=== PATIENT | female | born 1960 | race American Indian/Alaskan Native ===

== ENCOUNTER 2016-09-26 20:04 | Emergency (ER) | payer MEDICAID ==
[2016-09-26 21:16] LABS: Hematocrit 39.8 % (30.3-42.9); Hemoglobin 12.9 gm/dl (10.1-14.3); Mean Corpuscular HGB Conc 32 % (30-34); Mean Corpuscular Hemoglobin 27 pg (28-32); Mean Corpuscular Volume 82 fl (79-97); Platelet Count 161 K/mm3 (140-440); Red Blood Count 4.84 M/mm3 (3.65-5.03); Red Cell Distribution Width 14.7 % (13.2-15.2); White Blood Count 4.7 K/mm3 (4.5-11.0)
[2016-09-26 21:54] LABS: Urine Drugs of Abuse Note Disclamer
[2016-09-26 22:22] LABS: Bilirubin,Urine NEG (Negative); Blood,Urine NEG (Negative); Ketones,Urine NEG (Negative); Leukocyte Esterase,Urine SM (Negative); Mucus,Urine FEW /HPF; Nitrite,Urine NEG (Negative); Protein,Urine <15 mg/dL mg/dL (Negative)
[2016-09-26 22:57] LABS: Anion Gap 21 mmol/L; BUN/Creatinine Ratio 24.28; Blood Urea Nitrogen 17 mg/dL (7-17); Calcium 9.3 mg/dL (8.4-10.2); Carbon Dioxide 21 mmol/L (22-30); Chloride 106.4 mmol/L (98-107); Glucose 93 mg/dL (65-100); Potassium 3.8 mmol/L (3.6-5.0); Sodium 145 mmol/L (137-145)
[2016-09-26 23:12] LABS: Basophils % (Manual) 0 % (0.0-1.8); Blastocytes % (Manual) 0 %
[2016-09-26 23:13] LABS: Diff Status Complete; Platelet Estimate Consistent w Auto; RBC Morphology Normal
--- NOTE | 2016-09-27 06:19 | Emergency Department Report ---
ED Psych HPI - General Chief Complaint: Psych Stated Complaint: ANGEL SETH Time Seen by Provider: 09/27/16 06:16 Source: patient Mode of arrival: Ambulatory - History of Present Illness Initial Comments: A she states that she is tired of people watching her. She is homeless and she is out of her psychiatric medications. He states that she would like to start him up again. She has a history of schizophrenia. She is not agitated or hallucinating. She denies any suicidal or homicidal anxiety ideation. MD Complaint: other (paranoid ideation) -: month(s) Associated Psychiatric Symptoms: other History of same: Yes Quality: intermittent Improves With: none Worsens With: none Context: not taking psychiatric Associated Symptoms: denies other symptoms Treatments Prior to Arrival: none - Related Data Previous Rx's Medication Instructions Recorded Last Taken Type diphenhydrAMINE [Benadryl CAP] 25 mg PO QHS #30 capsule 01/15/16 Unknown Rx Benztropine [Cogentin] 0.5 mg PO QDAY #30 tablet 09/27/16 Unknown Rx Haloperidol [Haldol] 2 mg PO BID #30 tablet 09/27/16 Unknown Rx Allergies Allergy/AdvReac Type Severity Reaction Status Date / Time No Known Allergies Allergy Unverified 12/11/13 10:24 ED Review of Systems ROS: Stated complaint: ANGEL SETH Other details as noted in HPI Constitutional: denies: chills, fever Eyes: denies: eye pain, eye discharge, vision change ENT: denies: ear pain, throat pain Respiratory: denies: cough, shortness of breath, wheezing Cardiovascular: denies: chest pain, palpitations Endocrine: no symptoms reported Gastrointestinal: denies: abdominal pain, nausea, diarrhea Genitourinary: denies: urgency, dysuria, discharge Musculoskeletal: denies: back pain, joint swelling, arthralgia Skin: denies: rash, lesions Neurological: denies: headache, weakness, paresthesias Psychiatric: as per HPI. denies: anxiety, depression, auditory hallucinations, visual hallucinations, homicidal thoughts, suicidal thoughts Hematological/Lymphatic: denies: easy bleeding, easy bruising ED Past Medical Hx - Past Medical History Previous Medical History?: Yes Hx Psychiatric Treatment: Yes (schizophrenia) - Surgical History Past Surgical History?: No - Social History Smoking Status: Current Every Day Smoker Substance Use Type: None - Medications Home Medications: Home Medications Medication Instructions Recorded Confirmed Last Taken Type diphenhydrAMINE [Benadryl CAP] 25 mg PO QHS #30 capsule 01/15/16 09/27/16 Unknown Rx Benztropine [Cogentin] 0.5 mg PO QDAY #30 tablet 09/27/16 Unknown Rx Haloperidol [Haldol] 2 mg PO BID #30 tablet 09/27/16 Unknown Rx ED Physical Exam - General Limitations: No Limitations General appearance: alert, in no apparent distress - Head Head exam: Present: atraumatic, normocephalic - Eye Eye exam: Present: normal appearance - ENT ENT exam: Present: mucous membranes moist - Neck Neck exam: Present: normal inspection - Respiratory Respiratory exam: Present: normal lung sounds bilaterally. Absent: respiratory distress - Cardiovascular Cardiovascular Exam: Present: regular rate, normal rhythm. Absent: systolic murmur, diastolic murmur, rubs, gallop - GI/Abdominal GI/Abdominal exam: Present: soft, normal bowel sounds. Absent: distended, tenderness, guarding, rebound, rigid - Extremities Exam Extremities exam: Present: normal inspection - Back Exam Back exam: Present: normal inspection - Neurological Exam Neurological exam: Present: alert, oriented X3, CN II-XII intact, normal gait. Absent: motor sensory deficit - Psychiatric Psychiatric exam: Present: normal affect, normal mood - Skin Skin exam: Present: warm, dry, intact, normal color. Absent: rash ED Course Vital Signs 09/26/16 09/27/16 09/27/16 20:36 03:05 10:19 Temperature 98.2 F 97.5 F L 98.6 F Pulse Rate 98 H 92 H 78 Respiratory 16 14 14 Rate Blood Pressure 140/96 Blood Pressure 122/83 106/55 [Right] O2 Sat by Pulse 100 99 99 Oximetry - Reevaluation(s) Reevaluation #1: The patient was copacetic here. She took by mouth Geodon. The embedded case manager assisted her with her transportation needs. 09/27/16 10:49 ED Medical Decision Making - Lab Data Result diagrams: 09/26/16 20:49 09/26/16 20:49 Laboratory Results - last 24 hr 09/26/16 09/26/16 09/26/16 20:49 20:49 20:49 WBC 4.7 RBC 4.84 Hgb 12.9 Hct 39.8 MCV 82 MCH 27 L MCHC 32 RDW 14.7 Plt Count 161 Baso % (Auto) Protective Signal Installer Helper Add Manual Diff Complete Total Counted 100 Seg Neuts % (Manual) 30.0 L Band Neutrophils % 14.0 Lymphocytes % (Manual) 48.0 H Reactive Lymphs % (Man) 4.0 Monocytes % (Manual) 2.0 Eosinophils % (Manual) 2.0 Basophils % (Manual) 0 Metamyelocytes % 0 Myelocytes % 0 Promyelocytes % 0 Blast Cells % 0 Nucleated RBC % Not Reportable Seg Neutrophils # Man 1.4 L Band Neutrophils # 0.7 Lymphocytes # (Manual) 2.3 Abs React Lymphs (Man) 0.2 Monocytes # (Manual) 0.1 Eosinophils # (Manual) 0.1 Basophils # (Manual) 0.0 Metamyelocytes # 0.0 Myelocytes # 0.0 Promyelocytes # 0.0 Blast Cells # 0.0 WBC Morphology Not Reportable Hypersegmented Neuts Not Reportable Hyposegmented Neuts Not Reportable Hypogranular Neuts Not Reportable Smudge Cells Not Reportable Toxic Granulation Not Reportable Toxic Vacuolation Not Reportable Dohle Bodies Not Reportable Pelger-Huet Anomaly Not Reportable Santi Rods Not Reportable Platelet Estimate Consistent w auto Clumped Platelets Not Reportable Plt Clumps, EDTA Not Reportable Large Platelets Not Reportable Giant Platelets Not Reportable Platelet Satelliting Not Reportable Plt Morphology Comment Not Reportable RBC Morphology Normal Dimorphic RBCs Not Reportable Polychromasia Not Reportable Hypochromasia Not Reportable Poikilocytosis Not Reportable Anisocytosis Not Reportable Microcytosis Not Reportable Macrocytosis Not Reportable Spherocytes Not Reportable Pappenheimer Bodies Not Reportable Sickle Cells Not Reportable Target Cells Not Reportable Tear Drop Cells Not Reportable Ovalocytes Not Reportable Helmet Cells Not Reportable Lynne-Manele Bodies Not Reportable [place] Rings Not Reportable Collin Cells Not Reportable Bite Cells Not Reportable Crenated Cell Not Reportable Elliptocytes Not Reportable Acanthocytes (Spur) Not Reportable Rouleaux Not Reportable Hemoglobin C Crystals Not Reportable Schistocytes Not Reportable Malaria parasites Not Reportable Dany Bodies Not Reportable Hem Pathologist Commnt No Sodium 145 Potassium 3.8 Chloride 106.4 Carbon Dioxide 21 L Anion Gap 21 BUN 17 Creatinine 0.7 Estimated GFR > 60 BUN/Creatinine Ratio 24.28 Glucose 93 Calcium 9.3 Urine Color Urine Turbidity Urine pH Ur Specific [place] Urine Protein Urine Glucose (UA) Urine Ketones Urine Blood Urine Nitrite Ur Reducing Substances Urine Bilirubin Urine Ictotest Urine Urobilinogen Ur Leukocyte Esterase Urine WBC (Auto) Urine RBC (Auto) U Epithel Cells (Auto) Urine Mucus Urine HCG, Qual Urine Opiates Screen Urine Methadone Screen Ur Barbiturates Screen Ur Phencyclidine Scrn Ur Amphetamines Screen U Benzodiazepines Scrn Urine Cocaine Screen U Marijuana (THC) Screen Drugs of Abuse Note Plasma/Serum Alcohol < 0.01 09/26/16 09/26/16 21:00 21:00 WBC RBC Hgb Hct MCV MCH MCHC RDW Plt Count Baso % (Auto) Add Manual Diff Total Counted Seg Neuts % (Manual) Band Neutrophils % Lymphocytes % (Manual) Reactive Lymphs % (Man) Monocytes % (Manual) Eosinophils % (Manual) Basophils % (Manual) Metamyelocytes % Myelocytes % Promyelocytes % Blast Cells % Nucleated RBC % Seg Neutrophils # Man Band Neutrophils # Lymphocytes # (Manual) Abs React Lymphs (Man) Monocytes # (Manual) Eosinophils # (Manual) Basophils # (Manual) Metamyelocytes # Myelocytes # Promyelocytes # Blast Cells # WBC Morphology Hypersegmented Neuts Hyposegmented Neuts Hypogranular Neuts Smudge Cells Toxic Granulation Toxic Vacuolation Dohle Bodies Pelger-Huet Anomaly Santi Rods Platelet Estimate Clumped Platelets Plt Clumps, EDTA Large Platelets Giant Platelets Platelet Satelliting Plt Morphology Comment RBC Morphology Dimorphic RBCs Polychromasia Hypochromasia Poikilocytosis Anisocytosis Microcytosis Macrocytosis Spherocytes Pappenheimer Bodies Sickle Cells Target Cells Tear Drop Cells Ovalocytes Helmet Cells Lynne-Manele Bodies [place] Rings Collin Cells Bite Cells Crenated Cell Elliptocytes Acanthocytes (Spur) Rouleaux Hemoglobin C Crystals Schistocytes Malaria parasites Dany Bodies Hem Pathologist Commnt Sodium Potassium Chloride Carbon Dioxide Anion Gap BUN Creatinine Estimated GFR BUN/Creatinine Ratio Glucose Calcium Urine Color Yellow Urine Turbidity Clear Urine pH 5.0 Ur Specific [place] 1.014 Urine Protein <15 mg/dl Urine Glucose (UA) Neg Urine Ketones Neg Urine Blood Neg Urine Nitrite Neg Ur Reducing Substances Not Reportable Urine Bilirubin Neg Urine Ictotest Not Reportable Urine Urobilinogen 2.0 Ur Leukocyte Esterase Sm Urine WBC (Auto) 1.0 Urine RBC (Auto) 2.0 U Epithel Cells (Auto) 2.0 Urine Mucus Few Urine HCG, Qual Negative Urine Opiates Screen Presumptive negative Urine Methadone Screen Presumptive negative Ur Barbiturates Screen Presumptive negative Ur Phencyclidine Scrn Presumptive negative Ur Amphetamines Screen Presumptive negative U Benzodiazepines Scrn Presumptive negative Urine Cocaine Screen Presumptive negative U Marijuana (THC) Screen Presumptive negative Drugs of Abuse Note Disclamer Plasma/Serum Alcohol Critical care attestation.: If time is entered above; I have spent that time in minutes in the direct care of this critically ill patient, excluding procedure time. ED Disposition Clinical Impression: Homelessness Schizophrenia Qualifiers: Schizophrenia type: other Qualified Code(s): F20.89 - Other schizophrenia; F20.8 - Other schizophrenia Disposition: DISCHARGED TO HOME OR SELFCARE Is pt being admited?: No Does the pt Need Aspirin: No Condition: Stable Instructions: Schizophrenia (ED) Additional Instructions: Follow-up with [facility]. Rx as directed. Prescriptions: Benztropine [Cogentin] 0.5 mg PO QDAY #30 tablet Haloperidol [Haldol] 2 mg PO BID #30 tablet Referrals: PRIMARY CARE, [Primary Care Provider] - 3-5 Days [facility] [Outside] - 3-5 Days Time of Disposition: 10:51
[2016-09-27] MEDS ORDERED: GEODON IM ONE (06:36)
[2016-09-27] MEDS ORDERED: WATER FOR INJ (PF) 10 ML ONE (06:46)
[2016-09-27] MEDS ORDERED: GEODON PO ONE (07:09)
[2016-09-27 10:21] VITALS: BP 106/55
== END 2016-09-27 12:38 | disposition home or self-care (01) ==
LOC: ED 20:04 → EEVIPCON 20:04 → ED 09-27 12:38
DX: F20.89 Other schizophrenia (principal); Z59.0 Homelessness; F17.200 Nicotine dependence, unspecified, uncomplicated
CPT/HCPCS: 36415; 80048; 80307; 81001; 81025; 85007; 85025; 99284; G0480; J3486; 80320

== ENCOUNTER 2018-10-10 14:46 | Emergency (ER) | payer MEDICAID ==
--- NOTE | 2018-10-10 15:34 | Emergency Department Report ---
Blank Doc - Documentation Documentation: 58 yo here for mental health medication refill, Denies suicide or homocide idea tion. Shereports that she is in between psychiatris [facility] PSYCH- denies suicide or homocie idation. Calm. Denies hallucination. Meds Haldol,benadryl, risperdal and cogentin his initial assessment diagnostic orders/clinical plan/treatment (s) is/Are subject change based on patient's health status, clinical progression and re- assessment by fellow clinical providers in the ED. Further treatment and work-up at subsequent clinical providers discetion. Patient/guardians urged not to elope from s their condition may be serious if not clinically assessed and managed. Inital order include:NONE
--- NOTE | 2018-10-10 19:34 | Emergency Department Report ---
ED Medical Clearance HPI - General Chief complaint: Medical Clearance Stated complaint: MED REFILL Time Seen by Provider: 10/10/18 15:11 Source: patient Mode of arrival: Ambulatory - History of Present Illness Initial comments: pt is a 58 y/o aaf with hx of schizophrenia pt states she is out medications haldol, cogentin, and benadryl, is followed by [facility] pt has follow up in 2 days. pt denies hi or si pt denies other complaint Onset/Timin -: week(s) Place: home Alledged Intoxication: No Compliant with Home Medications: No Home medications: Previous Rx's Medication Instructions Recorded Last Taken Type Benztropine [Cogentin] 0.5 mg PO QDAY #4 tablet 10/10/18 Unknown Rx Haloperidol [Haldol] 2 mg PO BID #8 tablet 10/10/18 Unknown Rx diphenhydrAMINE [Benadryl CAP] 25 mg PO QHS #4 capsule 10/10/18 Unknown Rx Allergies/Adverse reactions: Allergies Allergy/AdvReac Type Severity Reaction Status Date / Time No Known Allergies Allergy Unverified 12/11/13 10:24 ED Review of Systems ROS: Stated complaint: MED REFILL Other details as noted in HPI Constitutional: denies: chills, fever Eyes: denies: eye pain, eye discharge, vision change ENT: denies: ear pain, throat pain Respiratory: denies: cough, shortness of breath, wheezing Cardiovascular: denies: chest pain, palpitations Endocrine: no symptoms reported Gastrointestinal: denies: abdominal pain, nausea, diarrhea Genitourinary: denies: urgency, dysuria, discharge Musculoskeletal: denies: back pain, joint swelling, arthralgia Skin: denies: rash, lesions Neurological: denies: headache, weakness, paresthesias Psychiatric: denies: anxiety, depression, auditory hallucinations, visual hallucinations, homicidal thoughts, suicidal thoughts Hematological/Lymphatic: denies: easy bleeding, easy bruising ED Past Medical Hx - Past Medical History Hx Psychiatric Treatment: Yes (schizophrenia) - Social History Smoking Status: Current Every Day Smoker Substance Use Type: None - Medications Home Medications: Home Medications Medication Instructions Recorded Confirmed Last Taken Type Benztropine [Cogentin] 0.5 mg PO QDAY #4 tablet 10/10/18 Unknown Rx Haloperidol [Haldol] 2 mg PO BID #8 tablet 10/10/18 Unknown Rx diphenhydrAMINE [Benadryl CAP] 25 mg PO QHS #4 capsule 10/10/18 Unknown Rx ED Physical Exam - General Limitations: No Limitations General appearance: alert, in no apparent distress - Head Head exam: Present: atraumatic, normocephalic - Eye Eye exam: Present: normal appearance - ENT ENT exam: Present: mucous membranes moist - Neck Neck exam: Present: normal inspection - Respiratory Respiratory exam: Present: normal lung sounds bilaterally. Absent: respiratory distress - Cardiovascular Cardiovascular Exam: Present: regular rate, normal rhythm. Absent: systolic murmur, diastolic murmur, rubs, gallop - GI/Abdominal GI/Abdominal exam: Present: soft, normal bowel sounds - Rectal Rectal exam: Present: deferred - Extremities Exam Extremities exam: Present: normal inspection - Back Exam Back exam: Present: normal inspection - Neurological Exam Neurological exam: Present: alert, oriented X3 - Psychiatric Psychiatric exam: Present: normal affect, normal mood - Skin Skin exam: Present: warm, dry, intact, normal color. Absent: rash ED Course Vital Signs 10/10/18 14:54 Temperature 97.8 F Pulse Rate 114 H Respiratory 20 Rate Blood Pressure 135/84 O2 Sat by Pulse 99 Oximetry ED Medical Decision Making - Medical Decision Making Phydical exam is normal hr improved , hr now 88 bpm, bp: 132/61 , rep: 16, , psych: no SI no HI pt a/o x 3 mentation is appropriate pt with nad , consulted ed attending recommendation 3 day supply of medication follow up with with pyschiatrist in 2 days as schedule, discussed same with patient , patient verbalized agreement and understanding of same. ED Disposition Clinical Impression: Medication refill Disposition: [id number] TO HOME OR SELFCARE Is pt being admited?: No Does the pt Need Aspirin: No Condition: Stable Instructions: Normal Exam (ED) Prescriptions: diphenhydrAMINE [Benadryl CAP] 25 mg PO QHS #4 capsule Benztropine [Cogentin] 0.5 mg PO QDAY #4 tablet Haloperidol [Haldol] 2 mg PO BID #8 tablet [facility] Forms: Work/School Release Form(ED) Time of Disposition: 19:39
== END 2018-10-10 19:55 | disposition home or self-care (01) ==
LOC: ED 14:46
CPT/HCPCS: 99283

== ENCOUNTER 2019-03-21 19:58 | Emergency (ER) | payer MEDICAID ==
--- NOTE | 2019-03-21 20:13 | Emergency Department Report ---
Blank Doc - Documentation Documentation: This is a 58-year-old female that presents with paranoid and stated everyone is looking at her. denies any SI/HI. This initial assessment/diagnostic orders/clinical plan/treatment(s) is/are subject to change based on patient's health status, clinical progression and re-assessment by fellow clinical providers in the ED. Further treatment and workup at subsequent clinical providers discretion. Patient/guardians urged not to elope from the ED as their condition may be serious if not clinically assessed and managed. Initial orders include: 1- Patient sent to MAIN ED for further evaluation and treatment 2- staffing program manager was notified to have patient be brought back [facility]. 3- RN was notified to keep patient as close range and observation until room available
[2019-03-21 20:32] LABS: Hematocrit 38.1 % (30.3-42.9); Hemoglobin 12.7 gm/dl (10.1-14.3); Mean Corpuscular HGB Conc 33 % (30-34); Mean Corpuscular Volume 82 fl (79-97); Platelet Count 180 K/mm3 (140-440); Red Blood Count 4.66 M/mm3 (3.65-5.03)
[2019-03-21 20:48] LABS: HCG Qualitative,Urine Negative (Negative)
[2019-03-21 20:55] LABS: BUN/Creatinine Ratio 14; Blood Urea Nitrogen 10 mg/dL (7-17); Calcium 9.1 mg/dL (8.4-10.2); Hemolysis Index 16
[2019-03-21 20:58] LABS: Amphetamine Screen,Urine PRESUMPTIVE NEGATIVE; Benzodiazepines Screen,Urine PRESUMPTIVE NEGATIVE; Cannabinoid Screen,Urine PRESUMPTIVE NEGATIVE; Cocaine Screen,Urine PRESUMPTIVE NEGATIVE; Methadone Screen,Urine PRESUMPTIVE NEGATIVE; Opiate Screen,Urine PRESUMPTIVE NEGATIVE
[2019-03-21 21:08] LABS: Basophils % (Manual) 0 % (0.0-1.8); Total Cells Counted 100
[2019-03-21 21:09] LABS: Platelet Estimate Consistent w Auto; RBC Morphology Normal
[2019-03-21] MEDS ORDERED: CATAPRES PO ONE (22:32)
--- NOTE | 2019-03-21 22:32 | Emergency Department Report ---
HPI - HPI HPI: Room 8 The patient is a 58-year-old female presenting with a chief complaint "people are staring at me." The patient has a history of schizophrenia and states she has not had her meds for approximately 1 month. Patient states she's come to the emergency department today because her where she goes people are staring at her. The patient states people are staring through her window at her. Patient is not suicidal or homicidal ideation. Patient denies auditory hallucinations <MARY NGUYEN - Last Filed: 03/21/19 22:20> <DIPAK WHITMORE - Last Filed: 03/22/19 16:28> - General Chief Complaint: Psych Time Seen by Provider: 03/21/19 20:12 ED Past Medical Hx - Past Medical History Hx Psychiatric Treatment: Yes (schizophrenia) - Surgical History Past Surgical History?: No - Family History Family history: no significant - Social History Smoking Status: Current Every Day Smoker (2/3 pack per day) Substance Use Type: None (denies illicit drug use) <MARY NGUYEN - Last Filed: 03/21/19 22:20> <DIPAK WHITMORE - Last Filed: 03/22/19 16:28> - Medications Home Medications: Home Medications Medication Instructions Recorded Confirmed Last Taken Type Benztropine [Cogentin] 0.5 mg PO QDAY #4 tablet 10/10/18 03/21/19 Unknown Rx Haloperidol [Haldol] 2 mg PO BID #8 tablet 10/10/18 03/21/19 Unknown Rx diphenhydrAMINE [Benadryl CAP] 25 mg PO QHS #4 capsule 10/10/18 03/21/19 Unknown Rx ED Review of Systems ROS: Stated complaint: MH EVAL Other details as noted in HPI Constitutional: no symptoms reported Eyes: denies: eye pain ENT: denies: throat pain Respiratory: no symptoms reported Cardiovascular: denies: chest pain Endocrine: no symptoms reported Gastrointestinal: denies: abdominal pain Genitourinary: denies: urgency Musculoskeletal: denies: back pain Neurological: denies: headache Psychiatric: denies: homicidal thoughts, suicidal thoughts <MARY NGUYEN - Last Filed: 03/21/19 22:20> ROS: Stated complaint: MH EVAL Other details as noted in HPI <DIPAK WHITMORE - Last Filed: 03/22/19 16:28> Physical Exam - Physical Exam Vital Signs: Vital Signs 03/21/19 20:12 Temperature 98.3 F Pulse Rate 94 H Respiratory 18 Rate Blood Pressure 183/95 O2 Sat by Pulse 100 Oximetry Physical Exam: GENERAL: The patient is well-developed well-nourished female sitting on stretcher not appearing to be in acute distress. [] HEENT: Normocephalic. Atraumatic. Extraocular motions are intact. Patient has moist mucous membranes. NECK: Supple. Trachea midline CHEST/LUNGS: Clear to auscultation. There is no respiratory distress noted. HEART/CARDIOVASCULAR: Regular. There is no tachycardia. There is no gallop rub or murmur. ABDOMEN: Abdomen is soft, nontender. Patient has normal bowel sounds. There is no abdominal distention. SKIN: There is no rash. There is no edema. There is no diaphoresis. NEURO: The patient is awake, alert, and oriented. The patient is cooperative. The patient has normal speech MUSCULOSKELETAL: There is no evidence of acute injury. <MARY NGUYEN - Last Filed: 03/21/19 22:20> - Physical Exam Vital Signs: Vital Signs 03/21/19 03/21/19 03/22/19 20:12 22:30 01:00 Temperature 98.3 F 98.1 F 98.2 F Pulse Rate 94 H 94 H 65 Respiratory 18 18 16 Rate Blood Pressure 183/95 Blood Pressure 155/101 113/65 [Left] O2 Sat by Pulse 100 96 100 Oximetry 03/22/19 03/22/19 08:46 08:47 Temperature 98 F Pulse Rate 77 Respiratory 15 Rate Blood Pressure Blood Pressure 109/82 [Left] O2 Sat by Pulse 98 98 Oximetry <DIPAK WHITMORE - Last Filed: 03/22/19 16:28> ED Course Vital Signs 03/21/19 20:12 Temperature 98.3 F Pulse Rate 94 H Respiratory 18 Rate Blood Pressure 183/95 O2 Sat by Pulse 100 Oximetry <MARY NGUYEN - Last Filed: 03/21/19 22:20> Vital Signs 03/21/19 03/21/19 03/22/19 20:12 22:30 01:00 Temperature 98.3 F 98.1 F 98.2 F Pulse Rate 94 H 94 H 65 Respiratory 18 18 16 Rate Blood Pressure 183/95 Blood Pressure 155/101 113/65 [Left] O2 Sat by Pulse 100 96 100 Oximetry 03/22/19 03/22/19 08:46 08:47 Temperature 98 F Pulse Rate 77 Respiratory 15 Rate Blood Pressure Blood Pressure 109/82 [Left] O2 Sat by Pulse 98 98 Oximetry <DIPAK WHITMORE - Last Filed: 03/22/19 16:28> ED Medical Decision Making - Lab Data Result diagrams: 03/21/19 20:18 03/21/19 20:18 Laboratory Tests 03/21/19 03/21/19 03/21/19 20:18 20:18 20:18 WBC 5.5 RBC 4.66 Hgb 12.7 Hct 38.1 MCV 82 MCH 27 L MCHC 33 RDW 15.0 Plt Count 180 Add Manual Diff Complete Total Counted 100 Seg Neuts % (Manual) 36.0 L Band Neutrophils % 0 Lymphocytes % (Manual) 56.0 H Reactive Lymphs % (Man) 0 Monocytes % (Manual) 6.0 Eosinophils % (Manual) 2.0 Basophils % (Manual) 0 Metamyelocytes % 0 Myelocytes % 0 Promyelocytes % 0 Blast Cells % 0 Nucleated RBC % Not Reportable Seg Neutrophils # Man 2.0 Band Neutrophils # 0.0 Lymphocytes # (Manual) 3.1 Abs React Lymphs (Man) 0.0 Monocytes # (Manual) 0.3 Eosinophils # (Manual) 0.1 Basophils # (Manual) 0.0 Metamyelocytes # 0.0 Myelocytes # 0.0 Promyelocytes # 0.0 Blast Cells # 0.0 WBC Morphology Not Reportable Hypersegmented Neuts Not Reportable Hyposegmented Neuts Not Reportable Hypogranular Neuts Not Reportable Smudge Cells Not Reportable Toxic Granulation Not Reportable Toxic Vacuolation Not Reportable Dohle Bodies Not Reportable Pelger-Huet Anomaly Not Reportable Santi Rods Not Reportable Platelet Estimate Consistent w auto Clumped Platelets Not Reportable Plt Clumps, EDTA Not Reportable Large Platelets Not Reportable Giant Platelets Not Reportable Platelet Satelliting Not Reportable Plt Morphology Comment Not Reportable RBC Morphology Normal Dimorphic RBCs Not Reportable Polychromasia Not Reportable Hypochromasia Not Reportable Poikilocytosis Not Reportable Anisocytosis Not Reportable Microcytosis Not Reportable Macrocytosis Not Reportable Spherocytes Not Reportable Pappenheimer Bodies Not Reportable Sickle Cells Not Reportable Target Cells Not Reportable Tear Drop Cells Not Reportable Ovalocytes Not Reportable Helmet Cells Not Reportable [place] Bodies Not Reportable Mcgrath Rings Not Reportable [place] Cells Not Reportable Bite Cells Not Reportable Crenated Cell Not Reportable Elliptocytes Not Reportable Acanthocytes (Spur) Not Reportable Rouleaux Not Reportable Hemoglobin C Crystals Not Reportable Schistocytes Not Reportable Malaria parasites Not Reportable Dany Bodies Not Reportable Hem Pathologist Commnt No Sodium 141 Potassium 4.0 Chloride 106.4 Carbon Dioxide 22 Anion Gap 17 BUN 10 Creatinine 0.7 Estimated GFR > 60 BUN/Creatinine Ratio 14 Glucose 99 Calcium 9.1 Urine HCG, Qual Salicylates < 0.3 L Urine Opiates Screen Urine Methadone Screen Acetaminophen Ur Barbiturates Screen Ur Phencyclidine Scrn Ur Amphetamines Screen U Benzodiazepines Scrn Urine Cocaine Screen U Marijuana (THC) Screen Drugs of Abuse Note Plasma/Serum Alcohol 03/21/19 03/21/19 03/21/19 20:18 20:18 20:35 WBC RBC Hgb Hct MCV MCH MCHC RDW Plt Count Add Manual Diff Total Counted Seg Neuts % (Manual) Band Neutrophils % Lymphocytes % (Manual) Reactive Lymphs % (Man) Monocytes % (Manual) Eosinophils % (Manual) Basophils % (Manual) Metamyelocytes % Myelocytes % Promyelocytes % Blast Cells % Nucleated RBC % Seg Neutrophils # Man Band Neutrophils # Lymphocytes # (Manual) Abs React Lymphs (Man) Monocytes # (Manual) Eosinophils # (Manual) Basophils # (Manual) Metamyelocytes # Myelocytes # Promyelocytes # Blast Cells # WBC Morphology Hypersegmented Neuts Hyposegmented Neuts Hypogranular Neuts Smudge Cells Toxic Granulation Toxic Vacuolation Dohle Bodies Pelger-Huet Anomaly Santi Rods Platelet Estimate Clumped Platelets Plt Clumps, EDTA Large Platelets Giant Platelets Platelet Satelliting Plt Morphology Comment RBC Morphology Dimorphic RBCs Polychromasia Hypochromasia Poikilocytosis Anisocytosis Microcytosis Macrocytosis Spherocytes Pappenheimer Bodies Sickle Cells Target Cells Tear Drop Cells Ovalocytes Helmet Cells [place] Bodies Mcgrath Rings [place] Cells Bite Cells Crenated Cell Elliptocytes Acanthocytes (Spur) Rouleaux Hemoglobin C Crystals Schistocytes Malaria parasites Dany Bodies Hem Pathologist Commnt Sodium Potassium Chloride Carbon Dioxide Anion Gap BUN Creatinine Estimated GFR BUN/Creatinine Ratio Glucose Calcium Urine HCG, Qual Negative Salicylates Urine Opiates Screen Urine Methadone Screen Acetaminophen < 5.0 L Ur Barbiturates Screen Ur Phencyclidine Scrn Ur Amphetamines Screen U Benzodiazepines Scrn Urine Cocaine Screen U Marijuana (THC) Screen Drugs of Abuse Note Plasma/Serum Alcohol < 0.01 03/21/19 20:35 WBC RBC Hgb Hct MCV MCH MCHC RDW Plt Count Add Manual Diff Total Counted Seg Neuts % (Manual) Band Neutrophils % Lymphocytes % (Manual) Reactive Lymphs % (Man) Monocytes % (Manual) Eosinophils % (Manual) Basophils % (Manual) Metamyelocytes % Myelocytes % Promyelocytes % Blast Cells % Nucleated RBC % Seg Neutrophils # Man Band Neutrophils # Lymphocytes # (Manual) Abs React Lymphs (Man) Monocytes # (Manual) Eosinophils # (Manual) Basophils # (Manual) Metamyelocytes # Myelocytes # Promyelocytes # Blast Cells # WBC Morphology Hypersegmented Neuts Hyposegmented Neuts Hypogranular Neuts Smudge Cells Toxic Granulation Toxic Vacuolation Dohle Bodies Pelger-Huet Anomaly Santi Rods Platelet Estimate Clumped Platelets Plt Clumps, EDTA Large Platelets Giant Platelets Platelet Satelliting Plt Morphology Comment RBC Morphology Dimorphic RBCs Polychromasia Hypochromasia Poikilocytosis Anisocytosis Microcytosis Macrocytosis Spherocytes Pappenheimer Bodies Sickle Cells Target Cells Tear Drop Cells Ovalocytes Helmet Cells [place] Bodies Mcgrath Rings [place] Cells Bite Cells Crenated Cell Elliptocytes Acanthocytes (Spur) Rouleaux Hemoglobin C Crystals Schistocytes Malaria parasites Dany Bodies Hem Pathologist Commnt Sodium Potassium Chloride Carbon Dioxide Anion Gap BUN Creatinine Estimated GFR BUN/Creatinine Ratio Glucose Calcium Urine HCG, Qual Salicylates Urine Opiates Screen Presumptive negative Urine Methadone Screen Presumptive negative Acetaminophen Ur Barbiturates Screen Presumptive negative Ur Phencyclidine Scrn Presumptive negative Ur Amphetamines Screen Presumptive negative U Benzodiazepines Scrn Presumptive negative Urine Cocaine Screen Presumptive negative U Marijuana (THC) Screen Presumptive negative Drugs of Abuse Note Disclamer Plasma/Serum Alcohol - Differential Diagnosis schizophrenia, delusional <MARY NGUYEN K - Last Filed: 03/21/19 22:20> - Lab Data Result diagrams: 03/21/19 20:18 03/21/19 20:18 - Medical Decision Making H is here because she feels paranoid and feels that people are watching her. Patient also is having an issue with her living situation. Patient was seen by social work and list of shelters has been given. Outpatient referrals have been made as well. Patient's is not homicidal suicidal or having any active hallucinations and is stable for discharge. <DIPAK WHITMORE - Last Filed: 03/22/19 16:28> Critical care attestation.: If time is entered above; I have spent that time in minutes in the direct care of this critically ill patient, excluding procedure time. <MARY NGUYEN - Last Filed: 03/21/19 22:20> Critical care attestation.: If time is entered above; I have spent that time in minutes in the direct care of this critically ill patient, excluding procedure time. <DIPAK WHITMORE - Last Filed: 03/22/19 16:28> ED Disposition <MARY NGUYEN - Last Filed: 03/21/19 22:20> Is pt being admited?: No Does the pt Need Aspirin: No Time of Disposition: 16:28 <DIPAK WHITMORE - Last Filed: 03/22/19 16:28> Clinical Impression: Schizophrenia, Delusional disorder Disposition: DC-01 TO HOME OR SELFCARE Condition: Stable Referrals: GUTIERREZ BARRY MD [Primary Care Provider] - 3-5 Days
[2019-03-21] MEDS ORDERED: HALDOL PO SCH (23:00)
[2019-03-21] MEDS: HALDOL PO SCH (23:37)
[2019-03-21] MEDS: COGENTIN PO SCH (23:39)
[2019-03-22] MEDS: COGENTIN PO SCH (10:22)
[2019-03-22] MEDS: HALDOL PO SCH (11:56)
--- NOTE | 2019-03-22 13:00 | Consultation ---
History of Present Illness - Reason for Consult Consult date: 03/22/19 Reason for consult: Mental Health Evaluation Requesting physician: MARY NGUYEN - Chief Complaint Chief complaint: "I'm homeless" - History of Present Psychiatric Illness 58 y.o. AA female who presented to the ER because she felt like people was "starring" at her. Today the patient was calm and cooperative during the assessment. She stated that she felt like she was being watched for several days, but deny that now since she have gotten sleep. She stated that she haven't been sleeping because she's homeless. She stated that she haven't had her medication (Cogentin/Haldol) for schizophrenia in weeks. She stated that she do not have a psychiatrist at this time. She denies Si/HI's and AVH's. She denies a poor appetite and erratic sleep. She denies recreational drug use and alcohol consumption (etoh). Medications and Allergies Allergies Allergy/AdvReac Type Severity Reaction Status Date / Time No Known Allergies Allergy Unverified 12/11/13 10:24 Home Medications Medication Instructions Recorded Confirmed Last Taken Type Benztropine [Cogentin] 0.5 mg PO QDAY #4 tablet 10/10/18 03/21/19 Unknown Rx Haloperidol [Haldol] 2 mg PO BID #8 tablet 10/10/18 03/21/19 Unknown Rx diphenhydrAMINE [Benadryl CAP] 25 mg PO QHS #4 capsule 10/10/18 03/21/19 Unknown Rx Active Meds: Active Medications Haloperidol (Haldol) 2 mg PO BID JARRETT Last Admin: 03/22/19 11:56 Dose: 2 mg Documented by: Past psychiatric history - Past Medical History Past Medical History: No medical history Past Surgical History: No surgical history - past Psychiatric treatment and history psychiatric treatment history: Hx of Schizophrenia per the patient. Denies a fam psy hx. - Social History Social history: other (Homeless) Mental Status Exam - Vital signs Last Vital Signs Temp 98 F 03/22/19 08:46 Pulse 77 03/22/19 08:46 Resp 15 03/22/19 08:46 BP 109/82 03/22/19 08:46 Pulse Ox 98 03/22/19 08:47 - Exam Narrative exam: MSE: Appearance: calm, cooperative Behavior: regular eye contact Speech: regular rate and tone Mood: "okay" Affect: congruent to mood Thought Process: circumstantial Thought Content: denies SI/HI's and AVH's Motor Activity: lying in bed Cognition: A/O x 3 Insight: fair Judgment: fair Results Result Diagrams: 03/21/19 20:18 03/21/19 20:18 Abnormal lab results 03/21/19 03/21/19 03/21/19 Range/Units 20:18 20:18 20:18 MCH 27 L (28-32) pg Seg Neuts % (Manual) 36.0 L (40.0-70.0) % Lymphocytes % (Manual) 56.0 H (13.4-35.0) % Salicylates < 0.3 L (2.8-20.0) mg/dL Acetaminophen < 5.0 L (10.0-30.0) ug/mL All other labs normal. Assessment and Plan Assessment and plan: Impression: Hx of Schizophrenia per the patient. No overt psychosis with the patient. Today the patient was calm and cooperative during the assessment. Recommendations/Plan: Continue home medications Haldol 2 mg PO BID and Ciogentin 0.5 mg PO BID. Case Mgmt involevemnet, the patient may need assistance with placement. Case Mgmt involvement, the patient will need assistance with placement. Psy sign off. Dispo: The patient can follow up with [facility] for outpatient psy services. Will staff with Dr Soraya Howard.
[2019-03-22 17:08] VITALS: BP 100/62
[2019-03-22] MEDS ORDERED: COGENTIN PO SCH (22:00)
== END 2019-03-22 16:05 | disposition home or self-care (01) ==
LOC: ED 19:58
DX: F20.0 Paranoid schizophrenia (principal); F17.200 Nicotine dependence, unspecified, uncomplicated; Z79.899 Other long term (current) drug therapy; Z59.0 Homelessness
CPT/HCPCS: 36415; 80048; 80307; 80320; 81025; 85007; 85025; G0480

== ENCOUNTER 2019-11-07 21:21 | Emergency (ER) | payer MEDICAID ==
[2019-11-07 21:26] VITALS: BP 137/84
--- NOTE | 2019-11-07 22:25 | Emergency Department Report ---
Chief Complaint: Recheck/Abnormal Lab/Rx Stated Complaint: MEDICATION REFILL Time Seen by Provider: 11/07/19 22:21 - HPI History of Present Illness: Patient is a 59-year-old female presents emergency room with complaints of a "medication refill." She states that she takes Haldol, Cogentin, Benadryl. I asked patient who feels these medications for her and she states that she had them filled here. I looked through patient's chart and the last time she had these medications was 10/10/2018 and they only gave her 4 capsules at that time and she was told to follow-up with the [facility]. She has not followed up with the [facility] or any other psychiatric facility. She has not been taking these medications for a year. She denies any SI, HI, active hallucinations. She does not appear to be in acute psychosis currently. She is alert and oriented x4 and appropriately answers questions VSS on exam: Non toxic appearing, no acute distress atraumatic, normocephalic normal appearance of the eyes, PERRL, EOMI, no periorbital edema or ecchymosis moist mucus membranes regular heart rate and rhythm, no gallops, no rubs, no murmurs breath sounds are clear bilaterally, no w/r/r A&O x4, no focal neuro deficit skin is warm, dry, intact Patient has no SI, no HI, no acute psychosis Discussed with patient that we do not refill these medications from the emergency department she has not been on these medications for a year Patient will be referred to the [facility] and given a list of multiple other outpatient psychiatric facilities Discussed strict return precautions with patient Discussed to return immediately if she began feeling thoughts of wanting to hurt herself or others Patient verbalized understanding and was very pleasant she asked for a Radha card to return home and I asked the nurse if she could assist patient in this - Exam Vital Signs: Vital Signs 11/07/19 21:25 Temperature 98.0 F Pulse Rate 95 H Respiratory 18 Rate Blood Pressure 137/84 O2 Sat by Pulse 97 Oximetry MSE screening note: Focused history and physical exam performed. Due to findings the following was ordered: ED Disposition for MSE Clinical Impression: Encounter for medical screening examination Disposition: MED SCREENING EXAM-LEFT Is pt being admited?: No Does the pt Need Aspirin: No Condition: Stable Additional Instructions: Please follow-up with the [facility] or one of the other resources I have provided you with. Return to the emergency room immediately for any new or worsening symptoms or any thoughts of wanting to hurt yourself or others. Referrals: [facility] [Outside] - 2-3 Days Time of Disposition: 22:25 Print Language: NORWEGI[place]
== END 2019-11-07 22:42 | disposition left against medical advice (07) ==
LOC: ED 21:21
DX: Z00.00 Encounter for general adult medical examination without abnormal findings (principal); Z76.0 Encounter for issue of repeat prescription
CPT/HCPCS: 99282

== ENCOUNTER 2021-03-01 11:14 | Emergency (ER) | payer MEDICAID ==
--- NOTE | 2021-03-01 12:50 | Emergency Department Report ---
<YULI WHITMORE - Last Filed: 03/01/21 18:41> ED Psych HPI - General Chief Complaint: Psych Stated Complaint: PSYCH / ANXIETY/ PEOPLE STARRING AT ME Time Seen by Provider: 03/01/21 12:36 - Related Data Previous Rx's Medication Instructions Recorded Last Taken Type Benztropine [Cogentin] 0.5 mg PO QDAY #4 tablet 10/10/18 Unknown Rx diphenhydrAMINE [Benadryl CAP] 25 mg PO QHS #4 capsule 10/10/18 Unknown Rx haloperidoL [Haldol] 2 mg PO BID #8 tablet 10/10/18 Unknown Rx Allergies Allergy/AdvReac Type Severity Reaction Status Date / Time No Known Allergies Allergy Verified 03/01/21 12:07 ED Past Medical Hx - Medications Home Medications: Home Medications Medication Instructions Recorded Confirmed Last Taken Type Benztropine [Cogentin] 0.5 mg PO QDAY #4 tablet 10/10/18 03/21/19 Unknown Rx diphenhydrAMINE [Benadryl CAP] 25 mg PO QHS #4 capsule 10/10/18 03/21/19 Unknown Rx haloperidoL [Haldol] 2 mg PO BID #8 tablet 10/10/18 03/21/19 Unknown Rx ED Medical Decision Making - Lab Data Result diagrams: 03/01/21 13:17 03/01/21 13:17 - Medical Decision Making Patient does not haveAuditory SI or HI. She does not require inpatient stabilization. Mental health special needs babysitter recommended discharge. Patient requests financial assistance in residential placement until March 11. Her financial arrangement will change at that time. Patient will be discharged ED Disposition Clinical Impression: Schizophrenia Disposition: DC-01 TO HOME OR SELFCARE Is pt being admited?: No Does the pt Need Aspirin: No Condition: Stable Additional Instructions: OUTPATIENT MENTAL HEALTH RESOURCES [facility], [facility] Iva Cates MD: [address], [address] [facility] [address] [place], [place] [id number] [place] [address] [place] [facility]: [employer] [address] [place] [address] [place] [address] [phone] [facility] Integrative Psychiatry: [facility] Healthcare: [address] [place] [address] [address] [place] [address] [facility] [address] [place] [facility]: Levi Whitaker MD: [address] [facility] [address] [facility] [address] [facility]: [address] [place], [place] [address] [place], [place] [id number] [phone] [place] CRISIS AND ACCESS LINE: * [place] Crisis Line: Suicide Prevention Line: Crisis Text Line: Text START to 145677 Emergency: 911 [place]: [facility] [address] [place] [address] Friday thru Friday - 8am - 5pm Call to schedule an assessment for mental health and substance abuse pro grams COLE: [facility] Address: [address] [place] [address] Friday thru Friday- 7am-2pm [facility] Behavioral [facility] Address: [address] [place] [address] Friday thru Friday: 8:30AM-5PM Transitional [facility] Providers: Rodrigo Nielsen [phone] Address: [address] [place] [address] [address] Original: Yanick Washington [phone] Ms. Meade: Denisha Slater [phone] Ms. Aviva Holtte [facility] [phone] Ms. Norris: [facility] [phone] [facility] Home: [facility] [phone] [facility] HOMELESS RESOURCES: [facility] [place] NEED HELP? If you are in need of help or know someone who does, please contact us at [email or web address] call , or come to our offices at [address] [place] [address], [place] [address], Friday-Friday beginning at 8AM. [facility]: PHIL Perez Address: [address] [place] [address] How do I join the [place] housing program? Our housing programs are offered based on availability. If you are looking to participate in our housing program, simply call [phone] to find out if we have available space. Since we do receive many calls, please allow up to 48 hours for one of our housing specialists to return your call. If we do not have vacancies, we suggest callingthe [facility] hotline at 211 for additional housing options. [facility] Services Admission from 8am to 10am Daily Address: [address] [place] [address] [facility] WOMEN and FAMILY Admission Address: [address], [place] [address] Information needed: Referrals: PRIMARY CARE, [Primary Care Provider] - 3-5 Days <OLINDA RAI - Last Filed: 03/07/21 06:33> ED Psych HPI - General Source: patient Mode of arrival: Ambulatory - History of Present Illness Initial Comments: 60-year-old female, history of schizophrenia, presents the ED with paranoia, stating that everybody is staring at her and people are trying to hurt her family. Patient states she is noncompliant with her psychiatric medications. She states they do not work. She denies any auditory hallucinations, SI, HI. -: unknown Associated Psychiatric Symptoms: other (Paranoia) Quality: constant Improves With: none Worsens With: none Context: not taking psychiatric Associated Symptoms: denies other symptoms Treatments Prior to Arrival: none ED Review of Systems ROS: Stated complaint: PSYCH / ANXIETY/ PEOPLE STARRING AT ME Other details as noted in HPI Comment: All other systems reviewed and negative Psychiatric: other (Paranoia reported). denies: auditory hallucinations, visual hallucinations, homicidal thoughts, suicidal thoughts ED Past Medical Hx - Past Medical History Hx Psychiatric Treatment: Yes (schizophrenia PARANOID) - Social History Smoking Status: Current Every Day Smoker ED Physical Exam - General Limitations: No Limitations General appearance: alert, in no apparent distress - Head Head exam: Present: atraumatic, normocephalic - Eye Eye exam: Present: normal appearance, EOMI - ENT ENT exam: Present: mucous membranes moist - Neck Neck exam: Present: normal inspection - Respiratory Respiratory exam: Present: normal lung sounds bilaterally. Absent: respiratory distress - Cardiovascular Cardiovascular Exam: Present: regular rate, normal rhythm - GI/Abdominal GI/Abdominal exam: Absent: distended - Extremities Exam Extremities exam: Present: normal inspection - Neurological Exam Neurological exam: Present: alert, oriented X3 - Psychiatric Psychiatric exam: Present: normal affect, normal mood - Skin Skin exam: Present: warm, dry, intact, normal color ED Course Vital Signs 03/01/21 03/01/21 12:10 20:06 Temperature 98.6 F 98.6 F Pulse Rate 87 84 Respiratory 18 18 Rate Blood Pressure 112/84 Blood Pressure 134/83 [Right] O2 Sat by Pulse 98 99 Oximetry ED Medical Decision Making - Lab Data Result diagrams: 03/01/21 13:17 03/01/21 13:17 - Medical Decision Making 60-year-old female, history of schizophrenia, presents the ED with paranoia, stating that everybody is staring at her and people are trying to hurt her family. Patient states she is noncompliant with her psychiatric medications. She states they do not work. She denies any auditory hallucinations, SI, HI. Labs are unremarkable. Vital signs are normal. Patient is medically clear for mental health evaluation. Will dispo per psych. Critical care attestation.: If time is entered above; I have spent that time in minutes in the direct care of this critically ill patient, excluding procedure time. ED Disposition Is pt being admited?: No
[2021-03-01 13:42] LABS: Basophils # (Auto) 0.1 K/mm3 (0.0-0.1); Basophils % (Auto) 1.2 % (0.0-1.8); Eosinophils # (Auto) 0.1 K/mm3 (0.0-0.4); Eosinophils % (Auto) 2.5 % (0.0-4.3); Hematocrit 39.7 % (30.3-42.9); Hemoglobin 13.1 gm/dl (10.1-14.3); Lymphocytes % (Auto) 36.6 % (13.4-35.0); Mean Corpuscular HGB Conc 33 % (30-34); Mean Corpuscular Volume 82 fl (79-97); Monocytes # (Auto) 0.3 K/mm3 (0.0-0.8); Monocytes % (Auto) 6.1 % (0.0-7.3); Platelet Count 192 K/mm3 (140-440); Red Blood Count 4.87 M/mm3 (3.65-5.03); Red Cell Distribution Width 14.5 % (13.2-15.2)
[2021-03-01 13:48] LABS: Blood Urea Nitrogen 10 mg/dL (7-17); Calcium 9.5 mg/dL (8.4-10.2); Hemolysis Index 8
[2021-03-01 13:53] LABS: BUN/Creatinine Ratio 14
[2021-03-01 20:07] VITALS: BP 134/83
== END 2021-03-01 21:17 | disposition home or self-care (01) ==
LOC: ED 11:14
DX: F20.9 Schizophrenia, unspecified (principal); F17.200 Nicotine dependence, unspecified, uncomplicated; Z79.899 Other long term (current) drug therapy
CPT/HCPCS: 36415; 80048; 80320; 85025; G0480